=== PATIENT | female | born 1945 | race Caucasian/White ===

== ENCOUNTER 2017-01-26 09:19 | Outpatient (RCR) | payer MEDICARE, OTHER | END 2017-01-27 12:50 | LOC: OPPGERO 09:19 | DX: F33.1 Major depressive disorder, recurrent, moderate (principal); F41.1 Generalized anxiety disorder ==

== ENCOUNTER 2017-03-01 09:00 | Outpatient (RCR) | payer MEDICARE, OTHER | END 2017-03-30 15:17 | LOC: OPPGERO 09:00 | DX: F33.1 Major depressive disorder, recurrent, moderate (principal); F41.1 Generalized anxiety disorder ==

== ENCOUNTER 2017-03-31 09:47 | Outpatient (RCR) | payer MEDICARE, OTHER | END 2017-04-27 14:13 | disposition home or self-care (01) | LOC: OPPGERO 09:47 | DX: F33.1 Major depressive disorder, recurrent, moderate (principal); F41.1 Generalized anxiety disorder; I10 Essential (primary) hypertension; G47.33 Obstructive sleep apnea (adult) (pediatric); Z79.82 Long term (current) use of aspirin; Z88.5 Allergy status to narcotic agent ==

== ENCOUNTER 2017-04-28 09:53 | Outpatient (RCR) | payer MEDICARE, OTHER | END 2017-05-27 11:13 | LOC: OPPGERO 09:53 | DX: F33.1 Major depressive disorder, recurrent, moderate (principal); F41.1 Generalized anxiety disorder; I10 Essential (primary) hypertension; G47.33 Obstructive sleep apnea (adult) (pediatric); Z79.82 Long term (current) use of aspirin; Z88.5 Allergy status to narcotic agent ==

== ENCOUNTER 2017-05-30 08:25 | Outpatient (RCR) | payer MEDICARE, OTHER | END 2017-06-27 13:09 | LOC: OPPGERO 08:25 | DX: F33.1 Major depressive disorder, recurrent, moderate (principal); F41.1 Generalized anxiety disorder; I10 Essential (primary) hypertension; G47.33 Obstructive sleep apnea (adult) (pediatric); Z88.5 Allergy status to narcotic agent; Z79.82 Long term (current) use of aspirin ==

== ENCOUNTER 2017-06-28 08:18 | Outpatient (RCR) | payer MEDICARE, OTHER | END 2017-07-28 13:30 | LOC: OPPGERO 08:18 | DX: F33.1 Major depressive disorder, recurrent, moderate (principal); F41.1 Generalized anxiety disorder; G47.33 Obstructive sleep apnea (adult) (pediatric); I10 Essential (primary) hypertension; Z79.82 Long term (current) use of aspirin ==

== ENCOUNTER 2017-07-29 08:03 | Outpatient (RCR) | payer MEDICARE, OTHER | END 2017-08-26 13:02 | LOC: OPPGERO 08:03 | DX: F33.1 Major depressive disorder, recurrent, moderate (principal); F41.1 Generalized anxiety disorder; I10 Essential (primary) hypertension; G47.33 Obstructive sleep apnea (adult) (pediatric); Z79.82 Long term (current) use of aspirin; Z79.899 Other long term (current) drug therapy; Z63.79 Other stressful life events affecting family and household ==

== ENCOUNTER 2017-08-29 09:10 | Outpatient (RCR) | payer MEDICARE, OTHER | END 2017-09-27 14:23 | disposition home or self-care (01) | LOC: OPPGERO 09:10 | DX: F33.1 Major depressive disorder, recurrent, moderate (principal); F41.1 Generalized anxiety disorder; G47.33 Obstructive sleep apnea (adult) (pediatric); I10 Essential (primary) hypertension; Z63.79 Other stressful life events affecting family and household; Z79.82 Long term (current) use of aspirin; Z79.899 Other long term (current) drug therapy ==